=== PATIENT | female | born 1970 | race Caucasian/White ===

== ENCOUNTER 2017-11-15 17:53 | Emergency (ER) | payer SELFPAY ==
[~2017-11-15] VITALS: Ht 160 cm; Wt 59.0 kg
[2017-11-15 18:02] VITALS: BP 128/71
--- NOTE | 2017-11-15 18:33 | NUR ---
PT AMBULATED TO ER BED 2
--- NOTE | 2017-11-15 18:50 | NUR ---
47f biba with c/o 03/21 constant sharp "all over " abdomen pain x last night with n/v/d. Patient denies any urinary complaints or fevers. Pt is aox4 with steady gait. RR are even and unlabored. VSS. Awaiting er md angel. Patient changed into gown and provided with warm blanket. Will continue to monitor.
--- NOTE | 2017-11-15 19:13 | NUR ---
Pt report given to Giselle Ramos. Transfer of care at this time.
--- NOTE | 2017-11-15 19:31 | NUR ---
pt sleeping in bed, will continue to monitor, arousable to enviromental stimuli.
--- NOTE | 2017-11-15 19:42 | NUR ---
Dr. Conrad evaluating patient at bedside.
[2017-11-15] MEDS ORDERED: NACL 0.9% 1,000 ML IV ONE (19:55)
[2017-11-15 20:52] LABS: BASOPHILS % (AUTO) 0.5 % (0.0-2.0); EOSINOPHILS # (AUTO) 0.1 K/uL (0-0.4); EOSINOPHILS % (AUTO) 1.2 % (0.0-4.0); HEMATOCRIT 40.9 % (36-48); HEMOGLOBIN 13.7 g/dL (12.0-16.0); LYMPHOCYTES # (AUTO) 0.5 K/uL (2.5-16.5); LYMPHOCYTES % (AUTO) 12.4 % (20.5-51.1); MEAN CORPUSCULAR HEMOGLOBIN 30 pg (27-31); MEAN CORPUSCULAR HGB CONC 34 g/dL (33-37); MEAN CORPUSCULAR VOLUME 88.1 fL (80-94); MONOCYTES # (AUTO) 0.3 K/uL (0.8-1.0); MONOCYTES % (AUTO) 7.5 % (1.7-9.3); NEUTROPHILS # (AUTO) 3.4 K/uL (1.8-7.7); NEUTROPHILS % (AUTO) 78.4 % (42.2-75.2); PLATELET COUNT (AUTO) 88 K/uL (140-450); RED BLOOD CELL COUNT(AUTO) 4.65 MIL/uL (4.20-5.40); RED CELL DISTRIBUTION WIDTH 13.2 % (11.6-13.7); WHITE BLOOD COUNT (AUTO) 4.3 K/uL (4.8-10.8)
[2017-11-15 21:09] LABS: ANION GAP 13.6 (8-16); CARBON DIOXIDE 27.2 mmol/L (21-32); CREATININE 0.8 mg/dL (0.6-1.3); POTASSIUM 3.8 mmol/L (3.5-5.1)
[2017-11-15 21:14] LABS: ALBUMIN 3.3 g/dL (3.4-5.0); TOTAL BILIRUBIN 0.6 mg/dL (0.0-1.0)
[2017-11-15 21:27] LABS: PROTHROMBIN TIME 11.7 secs (10.8-13.4)
[2017-11-15] MEDS ORDERED: KETOROLAC 30 MG/ML VIAL IVP ONE (21:40)
[2017-11-15] MEDS ORDERED: LACTULOSE 20 GM/30 ML UDC PO ONE (21:40)
--- NOTE | 2017-11-15 22:00 | NUR ---
Patient discharged with v/s stable. Written and verbal after care instructions given and explained. Patient alert, oriented and verbalized understanding of instructions. Ambulatory with steady gait. All questions addressed prior to discharge. ID band removed. Patient advised to follow up with PMD. Rx of Motrin and Lactulose given. Patient educated on indication of medication including possible reaction and side effects. Opportunity to ask questions provided and answered.
[2017-11-15 22:11] VITALS: BP 132/78
--- NOTE | 2017-11-20 19:41 | NUR ---
late entry normal saline 2040 start time 2114 end time
== END 2017-11-15 22:00 | disposition home or self-care (01) ==
LOC: MED 17:53
DX: K72.90 Hepatic failure, unspecified without coma (principal); I10 Essential (primary) hypertension; R19.7 Diarrhea, unspecified; F12.10 Cannabis abuse, uncomplicated; Z88.8 Allergy status to other drugs, medicaments and biological substances
CPT/HCPCS: 36415; 74022; 80053; 81002; 81025; 82140; 85025; 85610; 85730; 96360; 99285; J1885; J7030

== ENCOUNTER 2021-02-24 16:10 | Emergency (ER) | payer SELFPAY ==
[~2021-02-24] VITALS: Ht 160 cm; Wt 59.0 kg
[2021-02-24 16:22] VITALS: BP 150/100
--- NOTE | 2021-02-24 16:27 | NUR ---
PT TAKEN TO C VIA W/C.
--- NOTE | 2021-02-24 17:13 | NUR ---
PT TAKEN TO XRAY VIA W/C
[2021-02-24] MEDS ORDERED: HYDROcodone/APAP 5/325 MG 1 TAB TAB PO ONE (17:15)
[2021-02-24] MEDS ORDERED: ACET-8386 PO (18:17)
[2021-02-24] MEDS ORDERED: IBUP-2213 PO (18:17)
--- NOTE | 2021-02-24 18:48 | NUR ---
Patient discharged with v/s stable. Written and verbal after care instructions given and explained. Patient alert, oriented and verbalized understanding of instructions. Ambulatory with steady gait. All questions addressed prior to discharge. ID band removed. Patient advised to follow up with PMD. Rx of [place] and Ibuprofen was given. Patient educated on indication of medication including possible reaction and side effects. Opportunity to ask questions provided and answered.
== END 2021-02-24 18:48 | disposition home or self-care (01) ==
LOC: MED 16:10
DX: S92.355A Nondisplaced fracture of fifth metatarsal bone, left foot, initial encounter for closed fracture (principal); I10 Essential (primary) hypertension; Z88.6 Allergy status to analgesic agent; W01.0XXA Fall on same level from slipping, tripping and stumbling without subsequent striking against object, initial encounter; Y93.89 Activity, other specified; Y92.89 Other specified places as the place of occurrence of the external cause; Y99.8 Other external cause status
CPT/HCPCS: 29515; 73610; 73630; 99284